=== PATIENT | male | born 1950 | race Hispanic/Latino ===

== ENCOUNTER 2017-12-01 07:38 | Day surgery (SDC) | payer MEDICARE ==
[2017-12-01 07:55] VITALS: BMI 27.2
[2017-12-01] MEDS ORDERED: Propofol 10 mg/ml Inj (20 ML) ONE (08:55)
[2017-12-01] MEDS ORDERED: Midazolam 2 MG/2 ML VIAL ONE (08:55)
--- NOTE | 2017-12-01 09:21 | CP.SDSHP ---
Same Day Surgery H & P - History Proposed Procedure: colonsocopy Pre-Op Diagnosis: screen - Previous Medical/Surgical History Cardiac: Hypertension, ASHD/CAD Pulmonary: Emphysema/COPD - Allergies Allergies: Allergies No Known Allergies Allergy (Verified 12/01/17 07:55) - Physical Exam Vital Signs: Vital Signs 12/01/17 08:04 Temperature 97.3 F L Pulse Rate 80 Respiratory 20 Rate Blood Pressure 118/61 O2 Sat by Pulse 98 Oximetry Mental Status: Alert & Oriented x3 Neuro: WNL Heart: WNL Lungs: WNL GI: WNL - {Optional Preform as Required} Abdomen: WNL - Impression Impression: screen Pt. Evaluated Today:Candidate for Anesthesia & Procedure: Yes - Date & Time Date: 12/01/17 Time: 09:21 Short Stay Discharge - Short Stay Discharge Admitting Diagnosis/Reason for Visit: SCREENING Disposition: HOME/ ROUTINE
[2017-12-01] MEDS ORDERED: Lactated Ringer's 1,000 ML IV ONE (09:22)
[2017-12-01 10:33] VITALS: TEMP 98.2
[2017-12-01 10:37] VITALS: O2SAT 100
[2017-12-01 11:37] VITALS: BP 100/67; PULSE 78; RESP 10
== END 2017-12-01 11:09 | disposition home or self-care (01) ==
LOC: C.ENDO 07:38
PROVIDERS: ATTEND Internal Medicine Gastroenterology
DX: Z12.11 Encounter for screening for malignant neoplasm of colon (principal); Z79.82 Long term (current) use of aspirin; I25.10 Atherosclerotic heart disease of native coronary artery without angina pectoris; E78.5 Hyperlipidemia, unspecified; I10 Essential (primary) hypertension; F17.200 Nicotine dependence, unspecified, uncomplicated; J43.9 Emphysema, unspecified; K63.5 Polyp of colon; K57.30 Diverticulosis of large intestine without perforation or abscess without bleeding; K64.8 Other hemorrhoids
CPT/HCPCS: 45385; 88305; J2250; J2704; J7120